=== PATIENT | male | born 1980 | race Caucasian/White ===

== ENCOUNTER 2024-03-24 11:54 | Emergency (ER) | payer BC, OTHER ==
[~2024-03-24] VITALS: Ht 172.7 cm; Wt 86.2 kg
[2024-03-24 12:45] VITALS: BP 120/66; O2SAT 98
== END 2024-03-24 12:49 | disposition home or self-care (01) ==
LOC: ER 11:54
DX: G89.29 Other chronic pain (principal); M25.511 Pain in right shoulder
CPT/HCPCS: 73020; A4606; A4663